=== PATIENT | female | born 1950 | race Caucasian/White ===

== ENCOUNTER 2016-05-04 14:49 | Inpatient (IN) | payer MEDICARE, MEDICAID ==
[~2016-05-04] VITALS: Ht 172.7 cm; Wt 119.3 kg
[2016-05-04] MEDS ORDERED: FURO20TA4 PO (15:08)
[2016-05-04] MEDS ORDERED: LOSA25TA12 PO (15:08)
[2016-05-04] MEDS ORDERED: DIVA500T PO (15:08)
[2016-05-04] MEDS ORDERED: QUET200T PO (15:08)
[2016-05-04] MEDS ORDERED: ZIPR80CA2 PO (15:08)
[2016-05-04] MEDS ORDERED: ALPR0.2582 PO (15:08)
[2016-05-04] MEDS ORDERED: GABA-529 PO (15:08)
[2016-05-04] MEDS ORDERED: [UNRECOGNIZED DRUG - CODE] PO (15:08)
[2016-05-04] MEDS ORDERED: ESOM20CA PO (15:08)
[2016-05-04] MEDS ORDERED: TRAZ-129 PO (15:08)
[2016-05-04] MEDS ORDERED: LORA0.5T2 PO (15:08)
[2016-05-04] MEDS ORDERED: POTA10CA42 PO (15:08)
[2016-05-04] MEDS ORDERED: ATOR20TA65 PO (15:08)
[2016-05-04] MEDS ORDERED: TOPI-60 PO (15:08)
[2016-05-04 15:55] LABS: BASOPHILS % 0.6 % (0.0-2.0); EOSINOPHILS % 1.5 % (0.0-5.0); HEMATOCRIT. 41.1 % (36.0-48.0); MEAN CORPUSCULAR HEMOGLOBIN 30.8 pg (28.0-32.0); MEAN CORPUSCULAR HGB CONC 34.1 g/dL (31.0-37.0); MEAN CORPUSCULAR VOLUME 90.1 fL (81.0-99.0); MONOCYTES % 8.7 % (2.0-8.0); NEUTROPHILS % 73.2 % (40.0-76.0); PLATELET 233 x1000/uL (130-400); RED BLOOD CELL COUNT 4.56 mill/uL (4.2-5.4); RED CELL DISTRIBUTION WIDTH 13.5 % (11.6-14.6); WHITE BLOOD COUNT 9.5 x1000/uL (4.5-11.0)
[2016-05-04 15:58] LABS: PROTHROMBIN TIME 10.4 sec
[2016-05-04 16:00] LABS: ALBUMIN 3.1 g/dL (3.4-5.0); CALCIUM 8.4 mg/dL (8.5-10.1); CHLORIDE 103 mEq/L (98-107); INDEX HEMOLYSI 1 (1-3); INDEX ICTERIC 1 (1-4); INDEX LIPEMIC 1 (1-3)
[2016-05-04 16:05] LABS: ALANINE AMINOTRANSFERASE 13 IU/L (13-61); ANION GAP 11; CARBON DIOXIDE 30 mEq/L (21-32); UREA NITROGEN BLOOD 18 mg/dL (7-21); eGFR 53 mL/min (>60)
[2016-05-04 16:08] LABS: NT PRO B-TYPE NATRIURETIC PEP 128 pg/mL (5-125); TROPONIN I < 0.02 ng/mL (0.00-0.04)
[2016-05-04] MEDS ORDERED: FUROSEMIDE 20MG/2ML VIAL IVP ONE (17:15)
[2016-05-04 18:17] LABS: CLARITY URINE CLEAR (CLEAR); COLOR URINE YELLOW (YELLOW); GLUCOSE URINE NEGATIVE (NEGATIVE); KETONES URINE NEGATIVE (NEGATIVE); LEUKOCYTE ESTERASE URINE NEGATIVE (NEGATIVE); NITRITE URINE NEGATIVE (NEGATIVE); OCCULT BLOOD URINE NEGATIVE (NEGATIVE); PH URINE 7.5 (4.5-8.0); PROTEIN URINE NEGATIVE (NEGATIVE); SPECIFIC GRAVITY URINE 1.011 (1.005-1.030)
[2016-05-04] MEDS ORDERED: DIPHENHYDRAMINE 50MG/ML VIAL IV PRN (22:30)
[2016-05-04] MEDS ORDERED: DOCUSATE SODIUM 100MG CAPSULE PO PRN (22:30)
[2016-05-04] MEDS ORDERED: IPRATROPIUM/ALBUTEROL 0.5-3(2.5)MG/3ML NEB INH PRN (22:30)
[2016-05-04] MEDS ORDERED: ACETAMINOPHEN 325MG TABLET PO PRN (22:30)
[2016-05-04] MEDS ORDERED: NA PHOS,M-B/NA PHOS,DI-BA ENEMA 118ML PR PRN (22:30)
[2016-05-04] MEDS ORDERED: ONDANSETRON HCL 4MG/2ML VIAL IV PRN (22:30)
[2016-05-04] MEDS ORDERED: HYDROCODONE/ACETAMINOPHEN 5/325MG TABLET PO PRN (22:30)
[2016-05-04] MEDS ORDERED: MAGNESIUM/ALUMINUM HYDROXIDE/SIMETHICONE 30ML UDC PO PRN (22:30)
[2016-05-04] MEDS ORDERED: GUAIFENESIN 200MG/10ML SUGAR FREE UDC PO PRN (22:30)
[2016-05-04] MEDS ORDERED: HYDROMORPHONE HCL/PF 2MG/ML CPJ IV PRN (22:30)
[2016-05-04] MEDS ORDERED: CLONIDINE 0.1MG TABLET PO PRN (22:30)
[2016-05-04] MEDS ORDERED: LORAZEPAM 2MG/ML CPJ IV PRN (22:30)
[2016-05-04] MEDS ORDERED: IBUP-1509 PO (22:39)
[2016-05-04] MEDS ORDERED: FERR-63 PO (22:39)
[2016-05-04] MEDS ORDERED: DOCU-138 PO (22:39)
[2016-05-04 22:45] VITALS: BP 140/83
[2016-05-04 22:46] VITALS: BP 140/83
[2016-05-05] VITALS: BP 123/80
[2016-05-05] MEDS ORDERED: ALPRAZOLAM 0.25 MG TABLET PO PRN (02:15)
[2016-05-05 04:00] VITALS: BP 117/77
[2016-05-05] MEDS: PANTOPRAZOLE 40MG DR TABLET PO SCH (06:08)
[2016-05-05 06:15] LABS: ALANINE AMINOTRANSFERASE 11 IU/L (13-61); ALBUMIN 2.8 g/dL (3.4-5.0); ANION GAP 10; CALCIUM 8.1 mg/dL (8.5-10.1); CARBON DIOXIDE 29 mEq/L (21-32); CHLORIDE 105 mEq/L (98-107); HDL CHOLESTEROL 61 mg/dL (40-59); INDEX HEMOLYSI 1 (1-3); INDEX ICTERIC 1 (1-4); INDEX LIPEMIC 1 (1-3); LDL CHOLESTEROL 51 mg/dL (5-100); T4 FREE 1.07 ng/dL (0.76-1.46); TROPONIN I < 0.02 ng/mL (0.00-0.04); UREA NITROGEN BLOOD 16 mg/dL (7-21)
[2016-05-05 06:17] LABS: TRIGLYCERIDE 81 mg/dL (0-150); eGFR > 60 mL/min (>60)
[2016-05-05 06:40] LABS: BASOPHILS % 0.6 % (0.0-2.0); EOSINOPHILS % 2.1 % (0.0-5.0); HEMATOCRIT. 39.2 % (36.0-48.0); HEMOGLOBIN. 13.1 g/dL (12.0-16.0); LYMPHOCYTES % 22.5 % (20.0-50.0); MEAN CORPUSCULAR HEMOGLOBIN 30.1 pg (28.0-32.0); MEAN CORPUSCULAR HGB CONC 33.4 g/dL (31.0-37.0); MEAN PLATELET VOLUME 8.3 fl (7.4-10.4); NEUTROPHILS % 64.8 % (40.0-76.0); PLATELET 232 x1000/uL (130-400); RED BLOOD CELL COUNT 4.35 mill/uL (4.2-5.4); RED CELL DISTRIBUTION WIDTH 13.4 % (11.6-14.6); WHITE BLOOD COUNT 7.9 x1000/uL (4.5-11.0)
[2016-05-05 08:00] VITALS: BP 137/82
[2016-05-05] MEDS: FUROSEMIDE 40MG/4ML VIAL IV SCH (08:45)
[2016-05-05] MEDS: ASPIRIN 81MG EC TABLET PO SCH (08:45)
[2016-05-05] MEDS: DIVALPROEX SODIUM 500MG DR TABLET PO SCH ×2 (08:45→16:03)
[2016-05-05] MEDS: FERROUS SULFATE 325MG TABLET PO SCH (08:45)
[2016-05-05] MEDS: LOSARTAN POTASSIUM 25 MG TABLET PO SCH ×2 (08:46→21:17)
[2016-05-05] MEDS: GABAPENTIN 100MG CAPSULE PO SCH ×2 (08:46→16:03)
[2016-05-05] MEDS: POTASSIUM CHLORIDE 10MEQ TABLET SR PO SCH (08:46)
[2016-05-05] MEDS: TOPIRAMATE 25MG TABLET PO SCH ×2 (08:46→16:03)
[2016-05-05] MEDS: ARIPIPRAZOLE 10MG TABLET PO SCH ×2 (08:52→16:03)
[2016-05-05] MEDS ORDERED: ENOXAPARIN 40MG/0.4ML SYR SUBCUT SCH (09:00)
[2016-05-05] MEDS: IBUPROFEN 400MG TABLET PO PRN (09:03)
[2016-05-05 11:58] VITALS: BP 129/83
[2016-05-05 15:56] VITALS: BP 137/86
[2016-05-05 20:00] VITALS: BP 125/69
[2016-05-05] MEDS: ENOXAPARIN 30MG/0.3ML SYR SUBCUT SCH (21:16)
[2016-05-05] MEDS: ATORVASTATIN CALCIUM 20MG TABLET PO SCH (21:16)
[2016-05-05] MEDS: QUETIAPINE FUMARATE 100MG TABLET PO SCH (21:17)
[2016-05-05] MEDS: ZIPRASIDONE HCL 80MG CAPSULE PO SCH (21:17)
[2016-05-05] MEDS: TRAZODONE HCL 50MG TABLET PO SCH (21:17)
[2016-05-05 21:49] LABS: T4 FREE 1.19 ng/dL (0.76-1.46)
[2016-05-06] VITALS: BP 125/40
[2016-05-06 01:09] LABS: CREATINE KINASE 38 IU/L (26-192); INDEX HEMOLYSI 1 (1-3)
[2016-05-06 01:42] LABS: CREATINE KINASE MB FRACTION < 0.5 ng/mL (0.5-3.6)
[2016-05-06 04:00] VITALS: BP 125/81
[2016-05-06] MEDS: PANTOPRAZOLE 40MG DR TABLET PO SCH (06:20)
[2016-05-06 07:18] LABS: BASOPHILS % 0.7 % (0.0-2.0); EOSINOPHILS % 2.9 % (0.0-5.0); HEMOGLOBIN. 13.5 g/dL (12.0-16.0); LYMPHOCYTES % 32.9 % (20.0-50.0); MEAN CORPUSCULAR HGB CONC 33.9 g/dL (31.0-37.0); MEAN CORPUSCULAR VOLUME 88.6 fL (81.0-99.0); MEAN PLATELET VOLUME 8.5 fl (7.4-10.4); MONOCYTES % 9.6 % (2.0-8.0); NEUTROPHILS % 53.9 % (40.0-76.0); PLATELET 224 x1000/uL (130-400); RED BLOOD CELL COUNT 4.51 mill/uL (4.2-5.4); RED CELL DISTRIBUTION WIDTH 13.4 % (11.6-14.6)
[2016-05-06 07:57] LABS: ANION GAP 15; CALCIUM 8.5 mg/dL (8.5-10.1); CARBON DIOXIDE 25 mEq/L (21-32); CHLORIDE 105 mEq/L (98-107); CREATINE KINASE 32 IU/L (26-192); CREATINE KINASE MB FRACTION < 0.5 ng/mL (0.5-3.6); INDEX HEMOLYSI 1 (1-3); INDEX ICTERIC 1 (1-4); INDEX LIPEMIC 1 (1-3); UREA NITROGEN BLOOD 16 mg/dL (7-21); eGFR > 60 mL/min (>60)
[2016-05-06 08:00] VITALS: BP 110/67
[2016-05-06] MEDS: GABAPENTIN 100MG CAPSULE PO SCH ×2 (09:17→17:17)
[2016-05-06] MEDS: ARIPIPRAZOLE 10MG TABLET PO SCH ×2 (09:18→17:17)
[2016-05-06] MEDS: DIVALPROEX SODIUM 500MG DR TABLET PO SCH ×2 (09:18→17:17)
[2016-05-06] MEDS: FERROUS SULFATE 325MG TABLET PO SCH (09:18)
[2016-05-06] MEDS: ASPIRIN 81MG EC TABLET PO SCH (09:18)
[2016-05-06] MEDS: POTASSIUM CHLORIDE 10MEQ TABLET SR PO SCH (09:18)
[2016-05-06] MEDS: TOPIRAMATE 25MG TABLET PO SCH ×2 (09:18→17:17)
[2016-05-06] MEDS: ENOXAPARIN 30MG/0.3ML SYR SUBCUT SCH ×2 (09:19→20:21)
[2016-05-06] MEDS: LOSARTAN POTASSIUM 25 MG TABLET PO SCH ×2 (09:19→20:19)
[2016-05-06] MEDS: FUROSEMIDE 40MG/4ML VIAL IV SCH (09:19)
[2016-05-06 12:00] VITALS: BP 110/74
[2016-05-06 16:00] VITALS: BP 104/84
[2016-05-06 16:45] LABS: CREATINE KINASE 33 IU/L (26-192); CREATINE KINASE MB FRACTION < 0.5 ng/mL (0.5-3.6); INDEX HEMOLYSI 1 (1-3)
[2016-05-06 20:00] VITALS: BP 135/93
[2016-05-06] MEDS: ATORVASTATIN CALCIUM 20MG TABLET PO SCH (20:20)
[2016-05-06] MEDS: ZIPRASIDONE HCL 80MG CAPSULE PO SCH (20:20)
[2016-05-06] MEDS: TRAZODONE HCL 50MG TABLET PO SCH (20:20)
[2016-05-06] MEDS: QUETIAPINE FUMARATE 100MG TABLET PO SCH (20:20)
[2016-05-06] MEDS: IBUPROFEN 400MG TABLET PO PRN (22:08)
[2016-05-07] VITALS: BP 136/90
[2016-05-07 04:00] VITALS: BP 130/72
[2016-05-07] MEDS: PANTOPRAZOLE 40MG DR TABLET PO SCH (06:06)
[2016-05-07 08:00] VITALS: BP 127/74
[2016-05-07] MEDS: ASPIRIN 81MG EC TABLET PO SCH (08:13)
[2016-05-07] MEDS: GABAPENTIN 100MG CAPSULE PO SCH ×2 (08:13→16:10)
[2016-05-07] MEDS: ARIPIPRAZOLE 10MG TABLET PO SCH ×2 (08:13→16:10)
[2016-05-07] MEDS: FERROUS SULFATE 325MG TABLET PO SCH (08:13)
[2016-05-07] MEDS: POTASSIUM CHLORIDE 10MEQ TABLET SR PO SCH (08:13)
[2016-05-07] MEDS: LOSARTAN POTASSIUM 25 MG TABLET PO SCH ×2 (08:13→21:06)
[2016-05-07] MEDS: DIVALPROEX SODIUM 500MG DR TABLET PO SCH ×2 (08:13→16:10)
[2016-05-07] MEDS: ENOXAPARIN 30MG/0.3ML SYR SUBCUT SCH ×2 (08:14→21:07)
[2016-05-07] MEDS: TOPIRAMATE 25MG TABLET PO SCH ×2 (08:14→16:10)
[2016-05-07] MEDS: FUROSEMIDE 40MG/4ML VIAL IV SCH (08:14)
[2016-05-07 12:00] VITALS: BP 116/77
[2016-05-07] MEDS: IBUPROFEN 400MG TABLET PO PRN (13:37)
[2016-05-07 16:00] VITALS: BP 115/73
[2016-05-07 20:00] VITALS: BP 116/75
[2016-05-07] MEDS: ZIPRASIDONE HCL 80MG CAPSULE PO SCH (21:06)
[2016-05-07] MEDS: ATORVASTATIN CALCIUM 20MG TABLET PO SCH (21:06)
[2016-05-07] MEDS: TRAZODONE HCL 50MG TABLET PO SCH (21:06)
[2016-05-07] MEDS: QUETIAPINE FUMARATE 100MG TABLET PO SCH (21:06)
[2016-05-08] VITALS: BP 110/56
[2016-05-08 04:00] VITALS: BP 134/84
[2016-05-08] MEDS: PANTOPRAZOLE 40MG DR TABLET PO SCH (06:27)
[2016-05-08 08:00] VITALS: BP 111/67
[2016-05-08] MEDS: FUROSEMIDE 40MG/4ML VIAL IV SCH (08:13)
[2016-05-08] MEDS: POTASSIUM CHLORIDE 10MEQ TABLET SR PO SCH (08:13)
[2016-05-08] MEDS: GABAPENTIN 100MG CAPSULE PO SCH (08:13)
[2016-05-08] MEDS: LOSARTAN POTASSIUM 25 MG TABLET PO SCH (08:13)
[2016-05-08] MEDS: DIVALPROEX SODIUM 500MG DR TABLET PO SCH (08:13)
[2016-05-08] MEDS: TOPIRAMATE 25MG TABLET PO SCH (08:13)
[2016-05-08] MEDS: ARIPIPRAZOLE 10MG TABLET PO SCH (08:14)
[2016-05-08] MEDS: ASPIRIN 81MG EC TABLET PO SCH (08:14)
[2016-05-08] MEDS: FERROUS SULFATE 325MG TABLET PO SCH (08:14)
[2016-05-08] MEDS: ENOXAPARIN 30MG/0.3ML SYR SUBCUT SCH (08:19)
[2016-05-08 12:00] VITALS: BP 116/81
[2016-05-08 13:58] VITALS: BP 116/81
== END 2016-05-08 15:30 | DRG 292 ==
LOC: ER 15:02 → 6WST 17:16
PROVIDERS: ADMIT Internal Medicine; ATTEND Internal Medicine
DX: I11.0 Hypertensive heart disease with heart failure (principal); Z68.41 Body mass index [BMI] 40.0-44.9, adult; G90.9 Disorder of the autonomic nervous system, unspecified; I50.31 Acute diastolic (congestive) heart failure; G31.84 Mild cognitive impairment of uncertain or unknown etiology; E66.9 Obesity, unspecified; E78.00 Pure hypercholesterolemia, unspecified; E78.5 Hyperlipidemia, unspecified; F17.200 Nicotine dependence, unspecified, uncomplicated; F20.9 Schizophrenia, unspecified; F32.9 Major depressive disorder, single episode, unspecified; W01.0XXA Fall on same level from slipping, tripping and stumbling without subsequent striking against object, initial encounter; F41.9 Anxiety disorder, unspecified; G89.4 Chronic pain syndrome; Y92.89 Other specified places as the place of occurrence of the external cause; Y93.89 Activity, other specified; Y99.8 Other external cause status; Z79.899 Other long term (current) drug therapy
CPT/HCPCS: 36415; 71010; 80048; 80053; 80061; 81003; 82550; 82553; 83036; 83880; 84439; 84443; 84484; 85025; 85379; 85610; 86850; 86900; 93005; 93306; 93970; 96374; 97162; 99285; A6261; J1650; J1940